=== PATIENT | female | born 1960 | race African-American/Black ===

== ENCOUNTER → 2016-04-30 16:36 | Outpatient (CLI) | payer MEDICARE | END | disposition home or self-care (01) | LOC: D.MAMMO 14:45 | DX: Z12.31 Encounter for screening mammogram for malignant neoplasm of breast (principal) ==

== ENCOUNTER 2020-07-04 13:00 | Outpatient (CLI) | payer MEDICARE, MEDICAID | END 2020-07-04 23:59 | disposition home or self-care (01) | LOC: D.MAMMO 13:00 | PROVIDERS: ATTEND Emergency Medicine | DX: Z12.31 Encounter for screening mammogram for malignant neoplasm of breast (principal) ==